=== PATIENT | female | born 1950 | race Caucasian/White ===

== ENCOUNTER 2018-09-21 18:02 | Emergency (ER) | payer MEDICARE, MEDICAID ==
[2018-09-21 18:29] VITALS: RESP 18
--- NOTE | 2018-09-21 19:17 | C.PDOC ---
History Of Present Illness Patient is a 68 year old female who presents to the ED for evaluation of fever, bilateral flank pain, and burning during urination that began 2 weeks ago. Patient states that she has been drinking a lot of water which makes her urinary symptoms better, but her flank pain has been constant. Patient also reports that she has not had fever in the last couple of days. She denies any nausea, vomiting, diarrhea, CP, SOB, vaginal bleeding or vaginal discharge. Time Seen by Provider: 09/21/18 18:50 Chief Complaint (Nursing): Back Pain History Per: Patient History/Exam Limitations: no limitations Onset/Duration Of Symptoms: Other (2 weeks ) Current Symptoms Are (Timing): Still Present Quality Of Discomfort: "Pain" (bilateral flank pain ) Recent travel outside of the [place]: No Additional History Per: Patient Past Medical History Reviewed: Historical Data, Nursing Documentation, Vital Signs Vital Signs: Last Vital Signs Temp 98.6 F 09/21/18 18:24 Pulse 66 09/21/18 18:24 Resp 18 09/21/18 18:24 BP 144/75 09/21/18 18:24 Pulse Ox 98 09/21/18 18:24 - Medical History PMH: Fibromyalgia, Kidney Stones Surgical History: Appendectomy, Cholecystectomy, Tonsillectomy Family History: States: No Known Family Hx - Social History Hx Alcohol Use: No Hx Substance Use: No - Immunization History Hx Tetanus Toxoid Vaccination: No Hx Influenza Vaccination: No Hx Pneumococcal Vaccination: No Review Of Systems Constitutional: Positive for: Fever (not in the past few days ) Cardiovascular: Negative for: Chest Pain Respiratory: Negative for: Shortness of Breath Gastrointestinal: Negative for: Nausea, Vomiting, Diarrhea Genitourinary: Positive for: Dysuria. Negative for: Vaginal Discharge, Vaginal Bleeding Physical Exam - Physical Exam Appears: Non-toxic, No Acute Distress Skin: Normal Color, Warm, Dry Head: Atraumatic, Normacephalic Oral Mucosa: Moist Neck: Normal ROM, Supple Chest: Symmetrical, No Deformity Cardiovascular: Rhythm Regular, No Murmur Respiratory: Normal Breath Sounds, No Rales, No Rhonchi, No Wheezing Gastrointestinal/Abdominal: Soft, No Tenderness Back: CVA Tenderness (mild tenderness more on left than right ) Extremity: Normal ROM Neurological/Psych: Oriented x3, Normal Speech, Normal Cognition ED Course And Treatment - Laboratory Results Result Diagrams: 09/21/18 19:19 09/21/18 19:19 Lab Interpretation: No Acute Changes O2 Sat by Pulse Oximetry: 98 (on RA) Pulse Ox Interpretation: Normal - CT Scan/US CT abd/pel Other Rad Studies (CT/US): Read By Radiologist, Radiology Report Reviewed CT/US Interpretation: EXAM: CT Abdomen and Pelvis without IV contrast. CLINICAL HISTORY: Bilat flank pain. TECHNIQUE: Axial computed tomography images of the abdomen and pelvis without intravenous contrast. 0.00 mGy-cm. CONTRAST: Without. COMPARISON: None provided. FINDINGS: LUNG BASES: The lung bases appear clear. No pleural effusions are seen. LIVER: Unremarkable. GALLBLADDER AND BILE DUCTS: Status post cholecystectomy. No biliary ductal dilatation is evident. PANCREAS: Unremarkable. SPLEEN: Unremarkable. ADRENAL GLANDS: Unremarkable. KIDNEYS, URETERS, AND BLADDER: Both kidneys are normal in size and position. A punctate non-obstructing calculus is seen in the upper left renal pole. Several non-obstructing calculi are seen in the lower left renal pole; the largest of which measures 9.7 mm. There is no hydronephrosis or hydroureter. The urinary bladder appeared normal in size and configuration. STOMACH AND BOWEL: Unremarkable appearance of the stomach. No evidence of bowel obstruction. There is mild mucosal wall thickening of the jejunum with associated fluid in the lumen compatible with jejunitis. Infectious or inflammatory etiologies are thought most likely. No evidence suggesting colitis. APPENDIX: No evidence of acute appendicitis on CT examination. PERITONEUM: No free fluid. No free air. LYMPH NODES: No lymphadenopathy is evident. REPRODUCTIVE: Unremarkable as visualized. VASCULATURE: No evidence of abdominal aortic aneurysm. BONES: No aggressive appearing osseous lesion. No acute osseous pathology evident. Incidental note is made of bilateral pars defects within L5 with no associated spondylolisthesis. IMPRESSION: 1. Multiple non-obstructing left renal calculi as described above. 2. Evidence of jejunitis. 3. Status post cholecystectomy. Reevaluation Time: 22:23 Reassessment Condition: Unchanged Medical Decision Making Medical Decision Making: Plan: Labs Urinalysis US Pelvis Disposition Counseled Patient/Family Regarding: Studies Performed, Diagnosis, Need For Followup - Disposition Referrals: Terrance Phoenix [Staff Provider] - Disposition: HOME/ ROUTINE Disposition Time: 22:25 Condition: STABLE Additional Instructions: Take Ibuprophen for pain as needed. Forms: [facility] (Burmese), Gen Discharge Inst Burmese Print Language: [id number] - Clinical Impression Clinical Impression: Jejunitis - Scribe Statement The provider has reviewed the documentation as recorded by the Chelseyibvenus Fontenot All medical record entries made by the Chelseyibe were at my direction and personally dictated by me. I have reviewed the chart and agree that the record accurately reflects my personal performance of the history, physical exam, medical decision making, and the department course for this patient. I have also personally directed, reviewed, and agree with the discharge instructions and disposition.
[2018-09-21 19:18] LABS: SQUAMOUS EPITHIAL 1 /hpf (0-5); URINE BILIRUBIN NEGATIVE (NEGATIVE); URINE BLOOD NEGATIVE (NEGATIVE); URINE CLARITY Clear (Clear); URINE COLOR Straw (YELLOW); URINE GLUCOSE (UA) NORMAL (Normal); URINE LEUKOCYTE ESTERASE NEG Leu/uL (Negative); URINE PROTEIN NEGATIVE (NEGATIVE); URINE UROBILINOGEN NORMAL mg/dL (0.2-1.0)
[2018-09-21 19:25] LABS: BASO # 0.1 K/uL (0.0-0.2); BASO % 1.2 % (0.0-2.0); EOS # 0.2 K/uL (0.0-0.7); EOS % 3.7 % (0.0-4.0); HEMOGLOBIN 14.1 g/dL (11.0-16.0); LYMPH % 30.6 % (20.0-40.0); MEAN CELL VOLUME 89.3 fL (81.0-99.0); MEAN CORPUSCULAR HEMOGLOBIN 29.2 pg (27.0-31.0); MEAN CORPUSCULAR HGB CONC 32.6 g/dL (33.0-37.0); MEAN PLATELET VOLUME 9.7 fL (7.2-11.7); MONO # 0.6 K/uL (0.0-0.8); MONO % 9.3 % (0.0-10.0); NEUT # 3.6 K/uL (1.8-7.0); NEUT % 55.2 % (50.0-75.0); NRBC % 0.1 % (0.0-2.0); RBC 4.83 Mil/uL (3.80-5.20); RED CELL DISTRIBUTION WIDTH 12.9 % (11.5-14.5); WHITE BLOOD COUNT 6.5 K/uL (4.8-10.8)
[2018-09-21 19:36] LABS: ALB/GLOB RATIO 1.8 (1.0-2.1); ALBUMIN 4.4 g/dL (3.5-5.0); ALT/SGPT 17 U/L (9-52); AST/SGOT 28 U/L (14-36); BLOOD UREA NITROGEN 12 mg/dL (7-17); CALCIUM 9.5 mg/dl (8.6-10.4); GFR NON-AFRICAN AMERICAN > 60
[2018-09-21 21:48] VITALS: BP 131/78; PULSE 54; TEMP 98.4
[2018-09-21 22:20] VITALS: O2SAT 98
--- NOTE | 2018-09-22 11:01 | CT ---
Date of service: 09/21/2018 PROCEDURE: CT abdomen and pelvis. HISTORY: Bilateral flank pain COMPARISON: Comparison made with prior CT scan abdomen pelvis 12/09/2015. TECHNIQUE: Contiguous axial images of the abdomen and abdomen pelvis without oral or intravenous contrast material. Additional 2D sagittal and coronal reformats generated. Radiation dose: Total exam DLP = 502.02 mGy-cm. This CT exam was performed using one or more of the following dose reduction techniques: Automated exposure control, adjustment of the mA and/or kV according to patient size, and/or use of iterative reconstruction technique. FINDINGS: LOWER THORAX: Heart size within range of normal. No significant pericardial effusion. There is a small hiatal hernia. Lung bases clear. LIVER: Liver exhibits normal size and attenuation pattern. No obvious hepatic mass collection or calcification GALLBLADDER AND BILE DUCTS: Cholecystectomy with mild dilatation of the common bile duct PANCREAS: Unremarkable. No mass. No ductal dilatation. SPLEEN: Spleen is upper limits of normal measuring nearly 13 cm in AP dimension ADRENALS: No adrenal lesions. KIDNEYS AND URETERS: These demonstrate relatively symmetric size. There is an approximately 7.4 mm nonobstructing calculus seen in the lower pole collecting system left kidney.. There are several tiny adjacent surrounding calculi. No evidence of left-sided hydronephrosis. Mild dilatation of the right renal pelvis and proximal right ureter which appears to taper distally... No evidence of right-sided ureteral calculi identified. BLADDER: Urinary bladder is incompletely distended with slight thick-walled appearance; rule out cystitis with urinalysis follow-up.. REPRODUCTIVE: Unremarkable as visualized. APPENDIX: Unremarkable. BOWEL: Evaluation of the bowel is slightly limited due to the lack of oral contrast. The stomach is incompletely distended with thick-walled appearance. Visualized loops of small bowel exhibit normal contour and caliber. No evidence of acute mechanical small bowel obstruction however note several loops of small bowel which exhibits slight thick-walled appearance; rule out mild enteritis. Moderate amount of stool is seen within the cecum at ascending and transverse well as proximal descending colon with most of the remaining colon relatively collapsed. PERITONEUM: Unremarkable. No fluid collection. No free air. Small fat containing umbilical hernia. LYMPH NODES: Evaluation unremarkable. No enlarged lymph nodes. VASCULATURE: Unremarkable. No aortic aneurysm. Minimal aortic atherosclerotic calcification or mural plaque present. BONES: Mild multilevel degenerative spondylosis of the thoracic and lumbar spine. OTHER FINDINGS: None. IMPRESSION: Nonobstructing 7.5 mm calculus lower pole left kidney with a few adjacent tiny calcific densities. There is mild dilatation of the right renal pelvis and proximal right ureter however no right-sided nephrolithiasis or obstructive calculus. Cholecystectomy mild dilatation of the common bile duct. Borderline splenomegaly.. Rule out mild enteritis as above. There are few scattered colonic diverticula
== END 2018-09-21 22:36 | disposition home or self-care (01) ==
LOC: C.ER 18:02
DX: K52.9 Noninfective gastroenteritis and colitis, unspecified (principal); M79.7 Fibromyalgia